=== PATIENT | male | born 1990 | race Caucasian/White ===

== ENCOUNTER 2020-11-02 09:15 | Emergency (ER) | payer BC, SELFPAY ==
[2020-11-02 10:04] VITALS: BP 112/67; PULSE 89; RESP 16; TEMP 36.9; O2SAT 100
--- NOTE | 2020-11-02 10:26 | ED.UPPEXIN ---
HPI - Extremity Injury (Upper) General Chief Complaint: Extremity Injury, Upper Stated Complaint: Right shoulder pain Source: patient Mode of arrival: ambulatory Limitations: no limitations History of Present Illness HPI narrative: Patient is a 30-year-old male who presents with right shoulder pain and tingling in elbow x10 days. Patient reports sleeping wrong and having pain since. He denies known injury. He denies all other complaints. He denies taking [id number] medications for pain prior to arrival. Patient has no significant medical history. Related Data Allergies Allergy/AdvReac Type Severity Reaction Status Date / Time No Known Allergies Allergy Verified 11/02/20 10:14 Review of Systems Review of Systems: CONSTITUTIONAL: Denies fever, chills, or sweats. EYES: Denies visual changes, redness, or discharge. ENT: Denies rhinorrhea, congestion, sore throat, or otalgia. CARDIOVASCULAR: Denies chest pain, palpitations, or edema. RESPIRATORY: Denies cough or dyspnea. GASTROINTESTINAL: Denies abdominal pain, nausea, vomiting, or diarrhea. GENITOURINARY: Denies dysuria or hematuria. SKIN: Denies rash or itching. MUSCULOSKELETAL: Reports right shoulder pain NEUROLOGIC: Denies headache, numbness, dizziness, or weakness. PSYCHIATRIC: Denies anxiety or depression. PMFSH Past Medical History Medical History (Updated 11/02/20 @ 14:39 by PATRICE Encinas) No significant past medical history Surgical History Surgical History (Updated 11/02/20 @ 14:39 by PATRICE Encinas) No significant past surgical history Social History Social History (Updated 11/02/20 @ 14:40 by PATRICE Encinas) Smoking status: Never smoker Alcohol intake: current Alcohol use details: Occasional Substance use: never Living arrangements: with family Occupation/Education: occupation Gender identity (if verbalized by the patient): Male Comments At the time of signature, I have reviewed and agree with nursing past medical, surgical, social, and family history unless otherwise noted. Please see nursing chart for further information. There is no relevant family history pertinent to the presenting complaint. Exam Narrative: GENERAL: Well-appearing, well-nourished, and in no acute distress. HEAD: Normocephalic, atraumatic. EYES: EOMI. No redness or drainage. Conjunctiva are normal. ENT: Mucous membranes pink and moist. CHEST: No respiratory distress. Clear to auscultation. HEART: Regular rate and rhythm. EXTREMITIES: Right shoulder with normal range of motion, no edema, no visible deformity, good capillary refill, distal sensation intact SKIN: Warm, dry, no rash. NEURO: No focal deficits. Alert and oriented x3. Gait steady. PSYCH: Normal affect. No signs of depression or anxiety. Course Vital Signs Vital signs: Vital Signs Temperature 36.9 C 11/02/20 10:04 Pulse Rate 89 11/02/20 10:04 Respiratory Rate 16 11/02/20 10:04 Blood Pressure 112/67 11/02/20 10:04 Pulse Oximetry 100 11/02/20 10:04 Temperature 36.9 C 11/02/20 10:04 Pulse Rate 89 11/02/20 10:04 Respiratory Rate 16 11/02/20 10:04 Blood Pressure 112/67 11/02/20 10:04 Pulse Oximetry 100 11/02/20 10:04 Reviewed. Patient has been instructed to follow-up with his PCP regarding his blood pressure. MDM - Extremity Injury (Upper) MDM Narrative Medical decision making narrative: Discussed with patient most likely soft tissue injury. No deformity noted, full range of motion. Patient to follow-up with orthopedics. Taking muscle relaxants and NSAIDs for pain. Patient agrees with plan of care. Patient is stable for discharge home with outpatient follow-up as discussed. Differential Diagnosis Differential diagnosis: Likely other (Sprain, strain, fracture, contusion, dislocation) Discharge Plan Discharge Clinical Impression: Acute shoulder pain Qualifiers: Laterality: right Qualified Code(s): M25.511 - Pain in r
== END 2020-11-02 10:45 | disposition home or self-care (01) ==
PROVIDERS: Emergency Provider Nurse Practitioner
DX: M25.511 Pain in right shoulder (principal)
CPT/HCPCS: 99213; G0463